=== PATIENT | male | born 1945 | race Caucasian/White ===

== ENCOUNTER 2016-08-06 11:56 | Emergency (ER) | payer MEDICARE ==
[~2016-08-06] VITALS: Ht 170.2 cm; Wt 97.7 kg
[2016-08-06 11:59] VITALS: BP 120/72; PULSE 88; RESP 12; TEMP 98.2; O2SAT 99
--- NOTE | 2016-08-06 13:33 | PD ---
HPI Chief Complaint: Injury Time Seen by Provider: 12:50 Travel History International Travel<30 days: No Contact w/Intl Traveler<30days: No Traveled to known affect area: No History of Present Illness HPI Patient is a 71-year-old male who presents to ER with c/o of increased swelling and bruising to his left lower leg. Patient reports that one week ago, he was [place] and was moving heavy boxes, reports that a box accidently hit against his left lower leg. Reports increased pain and swelling to his left lower extremity over the past 2 days. Patient reports that he does take Coumadin as he does have a pacemaker in place. Patient with no shortness of breath or chest. This time. Patient with no other complaints. PFSH Past Medical History Hx Anticoagulant Therapy: Yes (COUMADIN) Cardiovascular Problems: Yes (AICD) Past Surgical History Pacemaker: Yes (ICD, Medtronic model # WVXL6b1) Social History Alcohol Use: No Tobacco Use: No Substance Use: No Allergies-Medications (Allergen,Severity, Reaction): Coded Allergies: No Known Allergies (Unverified , 08/06/16) Review of Systems Respiratory: No: Shortness of Breath Skin: Positive Other (hematoma to left lower extremity swelling) Physical Exam Narrative GENERAL: No acute distress, nontoxic SKIN: Warm and dry. HEAD: Atraumatic. Normocephalic. EYES: Pupils equal and round. No scleral icterus. No injection or drainage. ENT: No nasal bleeding or discharge. Mucous membranes pink and moist. NECK: Trachea midline. No JVD. CARDIOVASCULAR: Regular rate and rhythm. No murmur appreciated. RESPIRATORY: No accessory muscle use. Clear to auscultation. Breath sounds equal bilaterally. GASTROINTESTINAL: Abdomen soft, non-tender, nondistended. Hepatic and splenic margins not palpable. MUSCULOSKELETAL: No obvious deformities. No clubbing. No cyanosis. Patient with +2 edema to left lower extremity, pulses intact, pt with hematoma to left calf NEUROLOGICAL: Awake and alert. No obvious cranial nerve deficits. Motor grossly within normal limits. Normal speech. PSYCHIATRIC: Appropriate mood and affect; insight and judgment normal. Data Data Last Documented VS Vital Signs Date Time Temp Pulse Resp B/P Pulse Ox O2 Delivery O2 Flow Rate FiO2 08/06/16 12:51 74 18 96 Room Air 08/06/16 11:59 98.2 120/72 Orders Basic Metabolic Panel (Bmp) (08/06/16 12:52) Prothrombin Time / Inr (Pt) (08/06/16 12:52) Act Partial Throm Time (Ptt) (08/06/16 12:52) Us Leg Venous Doppler (08/06/16 ) Us Leg Soft Tissue (08/06/16 ) Labs Laboratory Tests Test 08/06/16 13:16 Prothrombin Time 38.1 SEC Prothromb Time International 3.3 RATIO Ratio Activated Partial 48.2 SEC Thromboplast Time Sodium Level 143 MEQ/L Potassium Level 3.6 MEQ/L Chloride Level 104 MEQ/L Carbon Dioxide Level 30.3 MEQ/L Anion Gap 9 MEQ/L Blood Urea Nitrogen 13 MG/DL Creatinine 0.89 MG/DL Estimat Glomerular Filtration 85 ML/MIN Rate Random Glucose 83 MG/DL Calcium Level 8.6 MG/DL [facility] Medical Decision Making Medical Screen Exam Complete: Yes Emergency Medical Condition: Yes Interpretation(s) Vital Signs Date Time Temp Pulse Resp B/P Pulse Ox O2 Delivery O2 Flow Rate FiO2 08/06/16 12:51 74 18 96 Room Air 08/06/16 11:59 98.2 88 12 120/72 99 Differential Diagnosis Coumadin coagulapathy, dvt, hematoma, cellulitis, Narrative Course Patient is 71-year-old male who presents to emergency room with complaints of left lower leg swelling and pain. Patient reports that he is on Coumadin as he has a pacemaker in place. Patient reports that he injured his left lower extremity 1 week ago while moving a box. Patient reports that he has increased pain and swelling to his left lower extremity over the past 2 days. Patient here for evaluation of this. PT-INR ordered, ultrasound of leg ordered to evaluate for possible DVT. INR 3.3, ultrasound of leg with no obvious DVT, patient does have significant hematoma to his left lower extremity most likely traumatic from his injurying his leg on a box one week ago. Discussed with patient need to put warm compresses, signs and symptoms of when to return to the emergency room was reviewed patient. Diagnosis Primary Impression: Traumatic hematoma of left lower leg Qualified Code: S80.12XA - Traumatic hematoma of left lower leg, initial encounter Patient Instructions: General Instructions Additional Instructions: Please follow-up with her primary care doctor Return to the emergency room as needed, or if symptoms worsen or persist Please place warm compresses and hematoma Scripts Hydrocodone-Acetaminophen (Lortab)5-325 Mg Tab1 Tab PO Q6H PRN (PAIN) #12 TAB Ref 0 Prov:Brenda Martines DO 08/06/16 Disposition: 01 DISCHARGE HOME Condition: Stable Brenda Martines DO Aug 06, 2016 13:33
[2016-08-06 14:13] LABS: APTT (PATIENT) 48.2 SEC (24.3-30.1); INTERNATIONAL NORMALIZED RATIO 3.3 RATIO; PROTHROMBIN TIME - PATIENT 38.1 SEC (9.8-11.6)
[2016-08-06 14:14] LABS: BICARBONATE 30.3 MEQ/L (21.0-32.0); POTASSIUM 3.6 MEQ/L (3.5-5.1)
--- NOTE | 2016-08-06 17:12 | RADRPT ---
EXAM DATE/TIME: 08/06/2016 15:19 [facility] COMPARISON: No previous studies available for comparison. INDICATIONS : Left leg swelling and bruising. MEDICAL HISTORY : Anticoagulant therapy, Coumadin. SURGICAL HISTORY : Internal defibrillator. ENCOUNTER: Initial ACUITY: 1 week PAIN SCORE: 7/10 LOCATION: Left leg. TECHNIQUE: Venous ultrasound of the leg was performed from the inguinal ligament to the proximal calf. Real-casper e, color Doppler and spectral tracing, compression and augmentation techniques were used. FINDINGS: There is normal compressibility of the deep venous system from the inguinal region to the proximal ca lf. No echogenic clot is seen in the lumen of the common femoral, femoral, popliteal, and posterior tibial veins. There is a normal response of the venous system to proximal and distal augmentation an d respiration. CONCLUSION: Normal examination. Yobani De Paz MD on August 06, 2016 at 17:10 Board Certified Radiologist. This report was verified electronically.
--- NOTE | 2016-08-06 17:14 | RADRPT ---
EXAM DATE/TIME: 08/06/2016 15:32 [facility] COMPARISON: No previous studies available for comparison. INDICATIONS : Left leg swelling and bruising. MEDICAL HISTORY : Anticoagulant therapy, Coumadin. SURGICAL HISTORY : Internal defibrillator. ENCOUNTER: Initial ACUITY: 1 week PAIN SCORE: 7/10 LOCATION: Left leg. AREA EVALUATED: Anterior distal resendiz just above ankle. FINDINGS: There is a lobulated mass in the left leg measuring up to 12.2 cm in length by 3.7 x 1.8 cm. No incre ased vascularity. This may represent a large hematoma. CONCLUSION: 1. Probable hematoma in the left leg with measurements given above. Yobani De Paz MD on August 06, 2016 at 17:10 Board Certified Radiologist. This report was verified electronically.
[2016-08-06] MEDS ORDERED: HYDR-3533 PO (17:20)
[2016-08-06 18:07] VITALS: BP 146/78; TEMP 98.3
== END 2016-08-06 17:45 | disposition home or self-care (01) ==
LOC: NEPA 11:56
DX: S80.12XA Contusion of left lower leg, initial encounter (principal); Z79.01 Long term (current) use of anticoagulants; Z95.0 Presence of cardiac pacemaker; W22.8XXA Striking against or struck by other objects, initial encounter; Y99.8 Other external cause status
CPT/HCPCS: 76882; 80048; 85610; 85730; 93971